=== PATIENT | male | born 1960 ===

== ENCOUNTER 2024-07-04 01:01 | Emergency (ER) | payer OTHER, SELFPAY ==
[2024-07-04 01:05] VITALS: BP 155/95; BMI 23.7
[2024-07-04 01:11] VITALS: BP 155/95
[2024-07-04 01:35] LABS: % Basophils 1.5 % (0-2); % Eosinophils 5.7 % (0-6); % Immature Granulocytes 0.4 % (0-0.5); % Lymphocytes 25.4 % (20.5-51.1); % Monocytes 16.3 % (1.7-9.3); % Neutrophils 50.7 % (42.2-75.2); Absolute Basophils 0.1 10^3/uL (0-0.2); Absolute Eosinophils 0.4 10^3/uL (0-0.7); Absolute Lymphocytes 1.7 10^3/uL (1.2-3.4); Absolute Monocytes 1.1 10^3/uL (0.1-0.6); Absolute Neutrophils 3.4 10^3/uL (1.4-6.5); Hematocrit 35.9 % (39.0-52.0); Hemoglobin 11.3 g/dL (13.0-18.0); Mean Corp Hgb Conc. 31.5 g/dL (33.0-37.0); Mean Corpuscular Hgb 22.3 pg (27.0-31.0); Mean Corpuscular Volume 70.8 fL (80.0-94.0); Mean Platelet Volume 11.5 fL (7.4-10.4); Nucleated Red Blood Cells % 0 % (-); Platelet Count 193 10^3/uL (130-400); Red Blood Cell Count 5.07 10^6/uL (4.70-6.10); Red Cell Dist. Width 15.3 % (11.5-14.5); White Blood Cell Count 6.7 10^3/uL (4.8-10.8)
--- NOTE | 2024-07-04 01:37 | ED.GENMED ---
History of Present Illness
General
Chief Complaint: Chest Pain
Source: patient
Exam Limitations: none
Time Seen by Provider: 07/04/24 01:19
Nursing documentation reviewed up to this point in time: agreed with
History of Present Illness
History of Present Illness:
This is a 63-year-old gentleman currently incarcerated [facility] since June 17. He presents with 3-day history of intermittent right parasternal chest pain, somewhat pinpoint in nature. Right parasternal chest pain
described as sharp, intermittent over the past 3 days, somewhat worse with lying supine, occasionally worse after meals, worse with cough or sneezing. He has had a rare brief cough and occasional sneezing but no fever no chills, no shortness of
breath. Chest pain is not worse with deep breath. He has had intermittent nausea but has had no vomiting. He does admit to intermittent brief palpitations but palpitations are not necessarily associated with intermittent right parasternal chest
pain. He states the chest pain is nonradiating, he denies neck nor back pain.
No leg pain or swelling.
He does admit to similar chest pain perhaps 10 years ago when he was hospitalized with tachycardia. Unsure as to the nature of tachycardia and does not believe he was discharged on any medications. He does not believe he required any intervention
for tachycardia.
He has no history of CAD nor history of hypertension, diabetes. He does note history of hyperlipidemia but instructed to follow a low-cholesterol diet. He states he has not required medication for hyperlipidemia.
No immediate family members with history of CAD nor thromboembolism.
Patient has history of substance abuse, history of heroin and cocaine abuse. Since incarceration was initially started on Tylenol with codeine taper for opioid withdrawal and has since been started on Subutex perhaps 2 to 3 days ago.
He currently denies opioid withdrawal symptoms.
Past History
Past History
ED Past Medical History: Arrthythmia (Tachycardia), Psychiatric (Depression, posttraumatic stress disorder), Other (Hepatitis C; completed treatment and reports cure from hep C.) and Other (History of polysubstance abuse.)
ED Past Surgical History: Other (Mandible surgery; hemorrhoidectomy)
Social History
Tobacco: Smoker
Drug: Cocaine and Narcotics
Living: skilled nursing
Employment: Not employed
Family History
Family History: Other (Grandmother in her 80s of congestive heart failure, and aunt later in life of CHF); Negative Diabetes or CAD
Phy Exam
Physical Exam
Physical Exam:
GENERAL: 63-year-old gentleman appears his stated age, bright and alert, pleasant, easily communicative and appears in no acute distress. 2 skilled nursing guards are accompanying.
EYE: pupils equal and reactive. anicteric
NECK: Supple, nontender, no meningismus, no significant adenopathy.
ENT: posterior pharynx is clear, oral mucosa is moist. No rhinorrhea.
CARDIAC: Regular rate and rhythm. no murmur. No rubs. No chest wall tenderness.
LUNGS: Clear breath sounds bilaterally, no acute respiratory distress, no wheezes/rales/rhonchi
ABDOMEN: Soft, nondistended, without focal tenderness, no r/g, no cvat. normoactive BS.
NEUROLOGICAL: Alert and oriented x3, no focal neuro deficits. Gait is steady.
SKIN: Warm and dry, normal color, skin intact. No rash.
MUSCULOSKELETAL: No C/C/E. peripheral pulses are full and equal b/l. No palpable tenderness.
PSYCH: Normal and appropriate interaction.
Scores
Heart Score for Chest Pain Patients
STEMI patient?: No
History: Slightly or Non-Suspicious
ECG: Nonspecific Repolarization
Age: >45 - <65 years
Risk Factors: No Risk Factors
Troponin: </= Normal Limit
Heart Score for Chest Pain Patients: 2
Heart Score Risk: 2.5% MACE over next 6 weeks
Course
Orders/Labs/Results
Orders:
Orders
07/04/24 01:03
Electrocardiogram (*1) Urgent
Reason for Study: Chest Pain
Cardiac Monitoring- Treatment ONCE
07/04/24 01:04
EKG- Treatment ONCE
07/04/24 01:17
CMP [Comprehensive Metabolic Panel] Urgent
Complete Blood Count/With Diff Urgent
Troponin I Urgent
07/04/24 01:37
CR Chest - 2 Views Urgent
Comment:
Reason For Exam: intermittent R parasternal CP x 3 days
07/04/24 03:00
Troponin I Urgent
07/04/24 03:46
Azithromycin [Zithromax] 500 mg PO NOW STA
Abnormal Lab Results
07/04/24
01:17
Hgb 11.3 L g/dL
(13.0-18.0)
Hct 35.9 L %
(39.0-52.0)
MCV 70.8 L fL
(80.0-94.0)
MCH 22.3 L pg
(27.0-31.0)
MCHC 31.5 L g/dL
(33.0-37.0)
RDW 15.3 H %
(11.5-14.5)
MPV 11.5 H fL
(7.4-10.4)
Absolute Monos (auto) 1.1 H 10^3/uL
(0.1-0.6)
Monocytes % 16.3 H %
(1.7-9.3)
Carbon Dioxide 21 L mmol/L
(22-30)
Creatinine 1.4 H mg/dL
(0.7-1.3)
07/04/24 01:17
07/04/24 01:17
Vital Signs
Initial and Last Documented VS:
Initial Vital Signs
Temp Pulse Resp BP Pulse Ox
97.5 F 62 12 155/95 100
07/04/24 01:05 07/04/24 01:05 07/04/24 01:05 07/04/24 01:05 07/04/24 01:05
Last Documented Vital Signs
Temp Pulse Resp BP Pulse Ox
97.5 F 59 9 134/78 99
07/04/24 01:05 07/04/24 03:15 07/04/24 03:15 07/04/24 03:00 07/04/24 03:33
MDM/Problems Addressed
Differential Diagnosis Includes:
Concern for ACS, pneumonia, pleurisy, GERD, costochondritis.
Dissection/PE are doubtful, no associated shortness of breath, right-sided chest pain has been intermittent over the past 3 days, worse with intermittent cough, sneeze.
EKG shows normal sinus rhythm at 60, normal axis, normal intervals. Minimal early repolarization with peaked T waves V2 V3 with flattened T waves high lateral and inferiorly. No evidence of STEMI. No old EKGs to compare.
Labs are pending including troponin.
Will check chest x-ray.
*Radiology
Radiology exam reviewed: preliminary read by ED provider (Chest x-ray concerning for subtle/hazy right upper lobe infiltrate. Normal mediastinum. No old films to compare.)
*Pulse Oximetry
Patient hypoxic: no
*EKG
Interpreted by ED Provider?: Yes
Interpretation: abnormal
Comparison EKG: no comparison EKG present
Rate: normal
Rhythm: sinus
[place]: normal axis
Interval: normal interval
QRS Pattern: poor R-wave progression
Ischemia: non-specific ST changes
*[facility] Interpretation
Rate: normal
Interpretation: normal
Rhythm: sinus
*Critical Care Note
Total Time (30-74mins, 75-104mins- exclusive of procedures): Not Applicable
Update Note
Update Note:
03:45
Patient continues to appear comfortable.
No respiratory distress.
Labs show normal white blood cell count. Very mild anemia. Mildly elevated creatinine of 1.4.
Troponin is negative x 2.
Chest x-ray concerning for subtle hazy infiltrate right upper lobe. Normal mediastinum.
Will treat community-acquired pneumonia with Z-Ck.
Due to mildly elevated creatinine recommend discontinuing ibuprofen. Okay to continue Tylenol as needed for pain, fever.
Discussed importance of staying well-hydrated on a daily basis.
Will discharge back to skilled nursing for continued care.
ED Attending Note
-
Portions of this chart may have been created with voice recognition software.� Occasional wrong word or��sound alike� substitutions may have occurred due to the inherent limitations of voice recognition software.
Discharge Plan
Departure
Patient Disposition: Long-Term
Date of Disposition: 07/04/24
Time of Disposition: 03:53
Patient with high blood pressure during this ER visit?: No
Discharge Problem:
Community acquired pneumonia, Right-sided chest pain, Creatinine elevation
Instructions: Community-acquired pneumonia in adults, Chest Pain PCP Follow Up
Prescriptions:
New
azithromycin [Zithromax] 250 mg tablet
250 mg PO DAILY Qty: 4 0RF
Rx Instructions:
to start 07/05/24
No Action
multivitamin Tablet
1 tab PO DAILY
acetaminophen 650 mg Tablet
650 mg PO Q4H PRN (Reason: pain)
ibuprofen 400 mg Tablet
400 mg PO TID
buprenorphine HCl 8 mg Tablet, Sublingual
8 mg SUBLINGUAL DAILY
triamcinolone acetonide 0.1 % Cream
1 applic TOPICAL BID
docusate sodium 100 mg Tablet
100 mg PO BID PRN (Reason: constipation)
Referrals:
[facility] [Family Provider] - Call in 1-3 days for appt
Activity Restrictions/Additional Instructions:
Due to mildly elevated creatinine, I recommend that ibuprofen be discontinued. You can continue Tylenol/acetaminophen for as needed pain, fever.
Chest x-ray concerning for subtle right upper lobe pneumonia. Chest x-ray will be officially read by radiologist later this morning.
Patient has been started on Zithromax for community-acquired pneumonia.
EKG is reassuring and troponin x 2 were negative. No evidence of ACS.
Interventions
Interventions:
*Risk Screen - Suicide Last Done: 07/04/24 01:05
*General Assessment Last Done: 07/04/24 01:05
*Neglect/Abuse Screening Last Done: 07/04/24 01:05
ED- Fall Risk Assessment Last Done: 07/04/24 02:15
*ED COVID-19 Vaccine History Last Done: 07/04/24 01:05
ED- Cardiac Assessment Last Done: 07/04/24 02:15
Discharge Date and Time
Print Language: TAMAZIGHT
[2024-07-04 01:46] LABS: ALT (SGPT) 38 U/L (0-50); AST (SGOT) 27 U/L (17-59); Albumin 4.1 g/dl (3.5-5.0); Alkaline Phosphatase 70 U/L (38-126); Blood Urea Nitrogen 20 mg/dl (9-20); Carbon Dioxide 21 mmol/L (22-30); Chloride 107 mmol/L (98-107); Estimated Creatinine Clearance 56 ml/min; Glucose 81 mg/dl (70-99); Potassium 4.8 mmol/L (3.5-5.1); Sodium 137 mmol/L (135-145); Total Bilirubin 0.3 mg/dl (0.2-1.3); Total Protein 7.3 g/dl (6.3-8.2); eGFR 56.48
[2024-07-04 01:52] LABS: Troponin I 0.024 ng/ml
[2024-07-04 03:00] VITALS: BP 134/78
[2024-07-04 03:33] LABS: Troponin I 0.024 ng/ml
--- NOTE | 2024-07-04 03:47 | EDRN ---
Patient ambulated to the restroom and back in bed, Dr. Lu back in toe go over results with patient.
[2024-07-04] MEDS: ZITHROMAX 500 MG PO (03:55)
== END 2024-07-04 04:08 ==
LOC: EMR 01:01
PROVIDERS: EMERGENCY PHYSICIAN Emergency Medicine
DX: J18.9 Pneumonia, unspecified organism (principal); R07.89 Other chest pain; R79.89 Other specified abnormal findings of blood chemistry; E78.5 Hyperlipidemia, unspecified; F17.200 Nicotine dependence, unspecified, uncomplicated
CPT/HCPCS: 99285; 71046; 80053; 84484; 85025; 93005